=== PATIENT | male | born 2000 | race Caucasian/White ===

== ENCOUNTER 2020-09-12 14:18 | Emergency (ER) | payer BC ==
[~2020-09-12] VITALS: Ht 180.3 cm; Wt 77.1 kg
--- NOTE | 2020-09-12 14:45 | NUR ---
Dr Robbins at the bedside for MSE.
--- NOTE | 2020-09-12 15:14 | NUR ---
Lt elbow abrasion cleaned and dressing applied.
[2020-09-12 15:29] VITALS: BP 100/63
--- NOTE | 2020-09-12 15:29 | NUR ---
Patient discharged to home in stable condition. Written and verbal after care instructions given. Patient verbalizes understanding of instructions. Stressed follow up or return to ER for worsening s/s.
== END 2020-09-12 15:30 | disposition home or self-care (01) ==
LOC: ER 14:18
DX: S09.90XA Unspecified injury of head, initial encounter (principal); V00.131A Fall from skateboard, initial encounter; Y93.51 Activity, roller skating (inline) and skateboarding; Y92.89 Other specified places as the place of occurrence of the external cause
CPT/HCPCS: 70450; A4663